=== PATIENT | male | born 1990 | race American Indian/Alaskan Native ===

== ENCOUNTER 2017-07-19 01:46 | Emergency (ER) | payer SELFPAY ==
--- NOTE | 2017-07-19 02:38 | C.PDOC ---
History Of Present Illness 27 y/o male presents to ED for complaints of feeling depressed since 2 weeks ago. Patient states he "has not been feeling like himself." Patient also states he has been feeling anxious and paranoid. Denies hearing voices, SI, HI, hurting himself or any other physical complaints. Time Seen by Provider: 07/19/17 02:04 Chief Complaint (Nursing): Psychiatric Evaluation History Per: Patient History/Exam Limitations: no limitations Onset/Duration Of Symptoms: Days (14) Current Symptoms Are (Timing): Still Present Suicide/Self Injury Attempted (Context): None Modifying Factor(s): None Associated Symptoms: Depression. denies: Suicidal Thoughts, Suicidal Plan Involuntary Hold By: None Recent travel outside of the [place]: No Past Medical History Reviewed: Historical Data, Nursing Documentation, Vital Signs Vital Signs: Last Vital Signs Temp 98.3 F 07/19/17 01:59 Pulse 75 07/19/17 01:59 Resp 18 07/19/17 01:59 BP 135/75 07/19/17 01:59 Pulse Ox 99 07/19/17 02:40 - Medical History PMH: Asthma Surgical History: No Surg Hx Family History: States: No Known Family Hx - Social History Hx Alcohol Use: No ("I DONT DRINK ANYMORE") Hx Substance Use: Yes Review Of Systems Constitutional: Negative for: Fever, Chills Cardiovascular: Negative for: Chest Pain Respiratory: Negative for: Shortness of Breath Gastrointestinal: Negative for: Nausea, Vomiting, Diarrhea Neurological: Negative for: Weakness, Numbness Psych: Positive for: Depression. Negative for: Suicidal ideation Physical Exam - Physical Exam Appears: Non-toxic, No Acute Distress Skin: Normal Color, Warm, Dry Head: Atraumatic, Normacephalic Eye(s): bilateral: Normal Inspection Oral Mucosa: Moist Neck: Normal ROM, Supple Chest: Symmetrical, No Tenderness Cardiovascular: Rhythm Regular, No Friction Rub, No Murmur Respiratory: No Decreased Breath Sounds, No Rales, No Rhonchi, No Wheezing Gastrointestinal/Abdominal: Soft, No Tenderness, No Distention Neurological/Psych: Oriented x3, Normal Speech, Normal Cognition, Normal Motor Gait: Steady ED Course And Treatment O2 Sat by Pulse Oximetry: 99 (RA) Pulse Ox Interpretation: Normal Medical Decision Making Medical Decision Making: The patient was evaluated by crisis and case was discussed with psych oncall who states the patient is able to be discharged home. Patient was instructed to follow up with outpatient psych. Disposition - Disposition Referrals: [facility] [Outside] Disposition: HOME/ ROUTINE Disposition Time: 04:19 Condition: GOOD Additional Instructions: Follow up with outpatient psych within 1-2 days, Return if worsened. 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 - Scribe Statement The provider has reviewed the documentation as recorded by the Scribe Khalif Damon All medical record entries made by the [facility] were at my direction and personally dictated by me. I have reviewed the chart and agree that the record accurately reflects my personal performance of the history, physical exam, medical decision making, and the department course for this patient. I have also personally directed, reviewed, and agree with the discharge instructions and disposition.
[2017-07-19 04:28] VITALS: BP 120/80; PULSE 70; RESP 14; TEMP 97.8; O2SAT 98
== END 2017-07-19 04:28 | disposition home or self-care (01) ==
LOC: C.ER 01:46
DX: F41.9 Anxiety disorder, unspecified (principal)